=== PATIENT | female | born 1995 | race Two or more races ===

== ENCOUNTER 2018-10-22 10:56 | Inpatient (IN) | payer OTHER ==
[~2018-10-22] VITALS: Ht 170.2 cm; Wt 62.6 kg
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
--- NOTE | 2018-10-22 11:47 | NUR ---
MEDICATED ORDERED. PLEASE SEE EMR.
[2018-10-22 13:21] LABS: BASOPHIL % 0.3 % (0-2); PLATELET COUNT 224 x10^3mcL (130-400); RED CELL DISTRIBUTION WIDTH 13.3 % (11.5-14.5)
--- NOTE | 2018-10-22 13:21 | NUR ---
PATIENT TAKEN TO CT.
--- NOTE | 2018-10-22 13:34 | NUR ---
REPORT GIVEN TO MAYDA KWAN FOR CONTINUED CARE.
[2018-10-22 13:36] LABS: CALCIUM 9.4 mg/dL (8.5-10.1); CARBON DIOXIDE 25.1 mmol/L (21-32); CHLORIDE SERUM 103 mmol/L (98-107); CREATININE SERUM 0.7 mg/dL (0.6-1.0); GFR1 > 60 mL/min; GLUCOSE SERUM 84 mg/dL (74-106); POTASSIUM SERUM 3.8 mmol/L (3.5-5.1); SODIUM SERUM 136 mmol/L (136-145)
[2018-10-22 13:41] LABS: ALKALINE PHOSPHATASE 56 U/L (46-116); ALT/SGPT 24 U/L (14-59); AST/SGOT 20 U/L (15-37); BILIRUBIN TOTAL 1.48 mg/dL (0.20-1.00); TOTAL PROTEIN, SERUM 7.5 g/dL (6.4-8.2)
--- NOTE | 2018-10-22 14:24 | NUR ---
PT TRANSFERED VIA GURNEY ACCOMPANIED BY EMT. VSS. RESPS E/U. NO S/S OF DISTRESS NOTED. IV SITE PATENT. PT DENIES PAIN OR DISCOMFORT TO SITE.
--- NOTE | 2018-10-22 14:30 | NUR ---
RECEIVED PT. FROM ED A/A/O X4. PT. C/O PAIN TO RLE (PAIN LEVEL OF 5/10). RLE WRAPPED IN JOEL-BANDAGE WITH SPLINT UNDERNEATH THE JOEL-BANDAGE. IV SITE NOTED TO L AC. WILL MEDICATE FOR PAIN ORDERED.
--- NOTE | 2018-10-22 15:00 | NUR ---
PT WAS RECEIVED BY PRIMARY NURSE OHARA FROM ED VIA BRE AT 1430H. PT SEEN LYING IN BED, AAOX4. DENIES HEADACHE/DIZZINESS. NO SOB NOTED, LUNG SOUNDS CTA. DENIES CHEST PAIN/PRESSURE. DENIES ABDOMINAL DISCOMFORT. C/O NUMBNESS AND 7/10 RLE PAIN. ABLE TO MOVE TOES ON THE RIGHT FOOT. W/ SPLINT COVERED W/ JOEL BANDAGES ON THE RLE. RLE ELEVATED W/ A PILLOW. SIDE RAILS UPX2. CALL LIGHT ON REACH. ENDORSED TO PRIMARY NURSE OHARA FOR CONTINUITY OF CARE
[2018-10-22 15:08] VITALS: BP 112/61
[2018-10-22 15:17] VITALS: Ht 170.2 cm; Wt 62.6 kg
--- NOTE | 2018-10-22 19:00 | NUR ---
REMAINS IN STABLE CONDITION AT THIS TIME. RLE ELEVATED ON PILLOW. WILL CONTINUE TO MONITOR.
--- NOTE | 2018-10-22 19:45 | NUR ---
RECEIVED REPORT FROM DAY SHIFT RN. PT RESTING IN BED. NO SOB. NO C/O PAIN. IV TO LAC, INTACT. SPLINT WRAPPED WITH JOEL BANDAGE TO RLE. RT LEG ELEVATED ON PILLOW. SAFETY MEASURES IN PLACE. INSTRUCTED PT TO USE THE CALL LIGHT FOR ASSISTANCE. CALL LIGHT WITHIN REACH. FAMILY AT BEDSIDE.
[2018-10-22 20:46] LABS: microscopic required? NO
[2018-10-22 20:51] LABS: UA SPECIFIC GRAVITY 1.015 (1.005-1.035); urine erythrocyte NEGATIVE (NEGATIVE)
[2018-10-22 20:57] VITALS: BP 101/58
[2018-10-22 20:59] LABS: AMPHETAMINE QUAL UR NONE DETECTED (See below)
--- NOTE | 2018-10-23 00:45 | NUR ---
PT RESTING WITH EYES CLOSED. NO SOB ON ROOM AIR. NO FACIAL GRIMACING. NO DISTRESS NOTED. SAFETY MEASURES IN PLACE. CALL LIGHT WITHIN REACH. WILL CONTINUE TO MONITOR.
--- NOTE | 2018-10-23 05:28 | NUR ---
PT SLEPT WELL THROUGHOUT SHIFT. NO SOB ON ROOM AIR. BREATHING EVEN AND UNLABORED. NO DISTRESS NOTED. SPLINT WITH DRESSING TO RLE, INTACT. RLE ELEVATED ON PILLOW. SAFETY MEASURES MAINTAINED. ALL NEEDS ATTENDED TO. CALL LIGHT WITHIN REACH. WILL ENDORSE CONTINUITY OF CARE TO DAY SHIFT RN.
[2018-10-23 05:36] VITALS: BP 96/51
[2018-10-23 06:12] LABS: BASOPHIL % 0.4 % (0-2); PLATELET COUNT 218 x10^3mcL (130-400); RED CELL DISTRIBUTION WIDTH 13.6 % (11.5-14.5)
[2018-10-23 06:37] LABS: CALCIUM 9.1 mg/dL (8.5-10.1); CARBON DIOXIDE 22.5 mmol/L (21-32); CHLORIDE SERUM 106 mmol/L (98-107); CREATININE SERUM 0.6 mg/dL (0.6-1.0); GFR1 > 60 mL/min; GLUCOSE SERUM 94 mg/dL (74-106); POTASSIUM SERUM 3.7 mmol/L (3.5-5.1); SODIUM SERUM 140 mmol/L (136-145)
--- NOTE | 2018-10-23 07:02 | NUR ---
PT C/O SHARP PAIN TO RLE 10. MEDICATED WITH MORPHINE.
--- NOTE | 2018-10-23 07:55 | NUR ---
RECEIVED PATIENT FROM AQUILES FERRO. PATIENT IN BED RESTING. AWARE THAT SHE IS NPO AT THIS TIME FOR SURGERY TODAY. PRN MORPHINE IVP GIVEN AND RESPONSIVE. WILL CONTINUE TO MONITOR UNTIL SURGERY. CALL LIGHT IN REACH AT THIS TIME.
--- NOTE | 2018-10-23 08:41 | NUR ---
SUPERVISOR WATER SOFTENER SERVICE LARA IN TO SEE PATIENT AT THIS TIME. PATIENT HAS COMPLAINTS OF MUSCLE SPASMS TO THE R LEG. WARM TOWEL WRAPPED AROUND R LEG FOR COMFORT. EXPLAINED TO PATIENT & FAMILY AT BEDSIDE ABOUT POST OP COMPLICATIONS. PATIENT & FAMILY VERBALIZES UNDERSTANDING. CALL LIGHT IN REACH AT THIS TIME.
[2018-10-23 09:15] VITALS: BP 117/80
--- NOTE | 2018-10-23 12:02 | NUR ---
PATIENT IN BED STATES HER R FOOT PAIN STILL PRESENT BUT FEELS LESS ANXIETY ABOUT SCHEDULED PROCEDURE. WILL CONTINUE TO MONITOR UNTIL OR READY FOR PATIENT. CALL LIGHT IN REACH.
[2018-10-23 15:35] VITALS: BP 132/92
--- NOTE | 2018-10-23 15:38 | NUR ---
PATIENT RETURNED TO UNIT. SEDATED AT THIS TIME W MILD NAUSEA. FATHER AT BEDSIDE. V/S STABLE, IV FLUIDS INFUSING. CIRCULATION, SENSATION, MOTOR PRESENT IN R FOOT POST OP. JEOL WRAP W KERLEX CDI. CALL LIGHT IN REACH AT THIS TIME.
[2018-10-23 16:08] VITALS: BP 107/65
--- NOTE | 2018-10-23 18:26 | NUR ---
PATIENT EXPERIENCING NAUSEA POST OP. UNABLE TO TOLERATE REGULAR DIET. PRN ZOFRAN 4 MG IVP GIVEN. WILL ENDORSE TO ONCOMING NURSE. CALL LIGHT IN REACH, FATHER AT BEDSIDE.
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
--- NOTE | 2018-10-23 20:00 | NUR ---
PT STATES SHE WAS UNABLE TO TOLERATE DINNER WITHOUT N/V. PT PROVIDED WITH SALTINE CRACKERS AND SPRITE TO SNACK. ADVISED PT TO CALL IF N/V RETURNS
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
[2018-10-23 21:06] VITALS: BP 98/53
--- NOTE | 2018-10-24 00:30 | NUR ---
NO ACUTE DISTRESS OBSERVED, PT IS LAYING IN BED, BREATHING EVEN AND UNLABORED. COMFORT AND SAFETY PRECAUTIONS IN PLACE. CALL LIGHT WITHIN REACH. WILL CONTINUE TO MONITOR
--- NOTE | 2018-10-24 05:07 | NUR ---
PT ADMITS TO VOIDING FREELY. DENIES POST OP PASSING GAS OR BM. PT WITH MULTIPLE EPISODES OF VOMITING EARLIER IN THE SHIFT. DENIES NAUSEA AT THIS TIME. NO OTHER SIGNIFICANT CHANGES TO REPORT. PT COMPLIED WITH NURSING CARE THROUGHOUT THE SHIFT WITH NO ACUTE EVENTS OVERNIGHT. NO ACUTE DISTRESS OBSERVED AT THIS TIME. PT LAYING IN BED, BREATHING EVEN AND UNLABORED, AROUSABLE TO VERBAL STIMULI. COMFORT AND SAFETY MEASURES MAINTAINED. ALL NEEDS ASSESSED AND ATTENDED TO. CALL LIGHT WITHIN REACH. WILL CONTINUE TO MONITOR AND ENDORSE CARE TO DAY SHIFT NURSE
[2018-10-24 05:23] VITALS: BP 110/68
[2018-10-24 05:52] LABS: BASOPHIL % 0.3 % (0-2); PLATELET COUNT 209 x10^3mcL (130-400); RED CELL DISTRIBUTION WIDTH 12.6 % (11.5-14.5)
[2018-10-24 06:35] LABS: CALCIUM 8.9 mg/dL (8.5-10.1); CARBON DIOXIDE 22.6 mmol/L (21-32); CHLORIDE SERUM 105 mmol/L (98-107); CREATININE SERUM 0.5 mg/dL (0.6-1.0); GFR1 > 60 mL/min; GLUCOSE SERUM 107 mg/dL (74-106); POTASSIUM SERUM 3.9 mmol/L (3.5-5.1); SODIUM SERUM 138 mmol/L (136-145)
--- NOTE | 2018-10-24 07:49 | NUR ---
RECEIVED PATIENT FROM AQUILES CONNOR. PATIENT IN BED, STATES HER NAUSEA HAS IMPROVED. WILL ATTEMPT TO REGULAR DIET TODAY AND MONITOR FOR NAUSEA. NO R FOOT PAIN AT THIS TIME. CALL LIGHT IN REACH.
[2018-10-24] MEDS ORDERED: MOT800 PO (08:30)
[2018-10-24 08:35] VITALS: BP 110/68
--- NOTE | 2018-10-24 08:36 | NUR ---
PT PORSHA IN TO TEACH PATIENT ABOUT CRUTCH USAGE. PORTABLE ROUTER OPERATOR LARA IN TO UPDATE PATIENT ABOUT PLAN OF CARE, ABLE TO GO HOME TODAY.
[2018-10-24 10:33] VITALS: BP 110/60
--- NOTE | 2018-10-24 11:09 | NUR ---
PATIENT GIVEN PRN MORPHINE 1 MG FOR PAIN POST PHYSICAL THERAPY SESSION. DISCHARGE INSTRUCTIONS GIVEN TO PATIENT & FATHER. DISCHARGE PACKET GIVEN TO PATIENT W PRESCRIPTION. ALL QUESTIONS ANSWERED. IV CATHETER REMOVED & INTACT. WILL AWAIT FOR PATIENT AUNT TO ARRIVE TO COMPLETE DISCHARGE.
== END 2018-10-24 11:51 | disposition home or self-care (01) | DRG 494 ==
LOC: ED 10:56 → MU 12:55
PROVIDERS: Emergency Medicine; Podiatrist Foot & Ankle Surgery; ADMIT General Practice
PROC: 0QSG04Z Reposition Right Tibia with Internal Fixation Device, Open Approach (ICD-10-PCS; principal; 2018-10-23 14:00)
DX: S82.51XA Displaced fracture of medial malleolus of right tibia, initial encounter for closed fracture (principal); S92.001A Unspecified fracture of right calcaneus, initial encounter for closed fracture; S92.324A Nondisplaced fracture of second metatarsal bone, right foot, initial encounter for closed fracture; S92.334A Nondisplaced fracture of third metatarsal bone, right foot, initial encounter for closed fracture; S91.011A Laceration without foreign body, right ankle, initial encounter; Y93.89 Activity, other specified; V47.6XXA Car passenger injured in collision with fixed or stationary object in traffic accident, initial encounter; Y92.411 Interstate highway as the place of occurrence of the external cause; F17.210 Nicotine dependence, cigarettes, uncomplicated; Z68.21 Body mass index [BMI] 21.0-21.9, adult
CPT/HCPCS: 76001; 97116-GP; C1713; J0690; J0696; J1170; J1885; J2270; J2405; J2704; J3010; J3490; J7120; Q0092